=== PATIENT | female | born 1935 | race Caucasian/White ===

== ENCOUNTER 2017-02-07 09:42 | Inpatient (IN) | payer MEDICARE, OTHER ==
[~2017-02-07 09:42] MED LIST: ASPIRIN81 M1 PO; ATORVASTATIN CA10 M1 PO; BLOOD PRESSURE; BYSTOLIC20 M1 PO; COUMADIN10 M1 PO; COUMADIN5 M2 PO; KEFLEX500 M4 PO; LANOXIN125 MC3 PO; LASIX40 M1 PO; LOPRESSOR50 M1 PO; POTASSIUM CHLO20 ME3 PO; TENORMIN25 M1 PO; ULTRAM50 M1 PO; VITAMIN D250000 UNI1 PO; VITAMIN D50000 UNI2 PO; WARFARIN SODIUM10 M1 PO
[2017-02-07 16:29] LABS: BASO % 0.1 % (0-2); EOS % 0.3 % (0-7); HGB-HEMOGLOBIN 13.1 gm/dl (12.0-15.5); IMMATURE GRANULOCYTES ABSOLUTE 0.02 tho/cmm (0-0.03); IMMATURE GRANULOCYTES PERCENT 0.3 % (0-0.3); LYMPH % 12.4 % (20-45); MCH (MEAN CORPUSCULAR HGB) 29.7 pg (28.0-32.0); MEAN PLATELET VOLUME 12.1 cmc (9.4-12.4); MONOCYTE ABSOLUTE COUNT 0.7 tho/cmm (0.0-1.2); NEUTROPHILS % 77.9 % (40-80); PLATELET COUNT 168 tho/cmm (150-450); RED BLOOD COUNT 4.41 mil/cmm (4.00-5.20); RED CELL DISTRIBUTION WIDTH 15.9 % (12.4-16.4); WHITE BLOOD COUNT 7.7 tho/cmm (4.0-10.0)
[2017-02-07 16:35] LABS: INR 2.7 INR (0.9-1.1); PROTHROMBIN TIME 32.6 SECONDS (9.0-13.6)
[2017-02-07 16:44] LABS: ANION GAP 14 mmol/L (0-20); BLOOD UREA NITROGEN 26 mg/dl (6-24); CARBON DIOXIDE-VENOUS 30 mmol/L (22-32); CHLORIDE 104 mmol/l (96-110); CREATININE 0.81 mg/dl (0.50-1.10); GLUCOSE 98 mg/dL (70-110); POTASSIUM 3.9 mmol/L (3.7-5.1); SODIUM 144 mmol/L (135-145); eGFR VALUE FOR BLACK 80 mL/Min
[2017-02-08 05:41] LABS: BASO % 0.2 % (0-2); EOS % 0.4 % (0-7); HCT-HEMATOCRIT 36.2 % (34.0-49.0); HGB-HEMOGLOBIN 11.3 gm/dl (12.0-15.5); IMMATURE GRANULOCYTES ABSOLUTE 0.01 tho/cmm (0-0.03); IMMATURE GRANULOCYTES PERCENT 0.2 % (0-0.3); LYMPH % 23.6 % (20-45); LYMPH ABSOLUTE COUNT 1.3 tho/cmm (0.8-4.5); MCHC MEAN CORPUSCULAR HGB CONC 31.2 % (32.0-36.0); MCV (MEAN CELL VOLUME) 93.1 fl (82.0-96.0); MEAN PLATELET VOLUME 11.9 cmc (9.4-12.4); MONO % 9.3 % (0-12); MONOCYTE ABSOLUTE COUNT 0.5 tho/cmm (0.0-1.2); NEUTROPHIL ABSOLUTE COUNT 3.6 tho/cmm (1.6-8.0); NEUTROPHIL-AUTOMATED 3.6 tho/cmm (1.6-8.0); NEUTROPHILS % 66.3 % (40-80); PLATELET COUNT 146 tho/cmm (150-450); RED BLOOD COUNT 3.89 mil/cmm (4.00-5.20); RED CELL DISTRIBUTION WIDTH 15.9 % (12.4-16.4); WHITE BLOOD COUNT 5.4 tho/cmm (4.0-10.0)
[2017-02-08 05:46] LABS: PARTIAL THROMBOPLASTIN TIME 31 SECONDS (22-36)
[2017-02-08 05:49] LABS: PROTHROMBIN TIME 23.1 SECONDS (9.0-13.6)
[2017-02-09 05:35] LABS: HCT-HEMATOCRIT 37.5 % (34.0-49.0); HGB-HEMOGLOBIN 11.9 gm/dl (12.0-15.5); IMMATURE GRANULOCYTES ABSOLUTE 0.01 tho/cmm (0-0.03); IMMATURE GRANULOCYTES PERCENT 0.1 % (0-0.3); LYMPH % 9.8 % (20-45); LYMPH ABSOLUTE COUNT 0.7 tho/cmm (0.8-4.5); MCH (MEAN CORPUSCULAR HGB) 29.5 pg (28.0-32.0); MCHC MEAN CORPUSCULAR HGB CONC 31.7 % (32.0-36.0); MCV (MEAN CELL VOLUME) 92.8 fl (82.0-96.0); MEAN PLATELET VOLUME 12.1 cmc (9.4-12.4); MONO % 3.2 % (0-12); MONOCYTE ABSOLUTE COUNT 0.2 tho/cmm (0.0-1.2); NEUTROPHIL ABSOLUTE COUNT 6.3 tho/cmm (1.6-8.0); NEUTROPHIL-AUTOMATED 6.3 tho/cmm (1.6-8.0); NEUTROPHILS % 86.9 % (40-80); PLATELET COUNT 152 tho/cmm (150-450); RED BLOOD COUNT 4.04 mil/cmm (4.00-5.20); RED CELL DISTRIBUTION WIDTH 15.7 % (12.4-16.4); WHITE BLOOD COUNT 7.3 tho/cmm (4.0-10.0)
[2017-02-09 05:45] LABS: INR 1.5 INR (0.9-1.1)
[2017-02-09 05:47] LABS: PARTIAL THROMBOPLASTIN TIME 29 SECONDS (22-36)
[2017-02-09 05:51] LABS: ANION GAP 12 mmol/L (0-20); BLOOD UREA NITROGEN 16 mg/dl (6-24); CALCIUM 9.1 mg/dl (8.5-10.5); CARBON DIOXIDE-VENOUS 27 mmol/L (22-32); CHLORIDE 103 mmol/l (96-110); CREATININE 0.72 mg/dl (0.50-1.10); POTASSIUM 4.1 mmol/L (3.7-5.1); SODIUM 138 mmol/L (135-145); eGFR VALUE FOR BLACK >90 mL/Min
[2017-02-09 06:10] LABS: PROTHROMBIN TIME 18.2 SECONDS (9.0-13.6)
[2017-02-09 06:13] LABS: GLUCOSE 168 mg/dL (70-110)
[2017-04-05] MEDS ORDERED: BACTRIM DS TAB1 EAC2 PO (13:53)
[2017-04-07] MEDS ORDERED: BACTRIM DS TAB1 EAC2 PO (05:49)
[2017-04-08] MEDS ORDERED: MACROBID 100 M100 M1 PO (09:47)
== END 2017-02-09 16:10 | DRG 577 ==
LOC: WCC 09:42 → BURN 13:37 → PACU 02-08 15:22 → BURN 02-08 16:47
PROVIDERS: Surgery; ADMIT Surgery
PROC: 0JDR0ZZ Extraction of Left Foot Subcutaneous Tissue and Fascia, Open Approach (ICD-10-PCS; principal; 2017-02-07)
PROC: 0HRNXK3 Replacement of Left Foot Skin with Nonautologous Tissue Substitute, Full Thickness, External Approach (ICD-10-PCS; 2017-02-07)
PROC: 0HRMXK3 Replacement of Right Foot Skin with Nonautologous Tissue Substitute, Full Thickness, External Approach (ICD-10-PCS; 2017-02-07)
PROC: 0JDQ0ZZ Extraction of Right Foot Subcutaneous Tissue and Fascia, Open Approach (ICD-10-PCS; 2017-02-07)
DX: S91.001A Unspecified open wound, right ankle, initial encounter (principal); I42.9 Cardiomyopathy, unspecified; I48.91 Unspecified atrial fibrillation; S91.002A Unspecified open wound, left ankle, initial encounter; X58.XXXA Exposure to other specified factors, initial encounter; M19.90 Unspecified osteoarthritis, unspecified site; I87.8 Other specified disorders of veins
CPT/HCPCS: C1751; G0463; J0171; J0295; J3010; P9017